=== PATIENT | female | born 1995 | race Caucasian/White ===

== ENCOUNTER 2025-07-31 03:59 | Emergency (ER) | payer BC ==
--- OUTSIDE RECORDS SUMMARY | 2025-07-31 04:03 | XMS REPORT | Continuity of Care Document ---
Author Name Unknown Address [address] [place] [address] Organization [facility] [place] Address [address] [place] [address] Care Team Providers Care Physician Support Coordinator Name Role Phone KEVIN ENRIQUEZ Primary Care Physician DEANNA Reina Attending Clinician Unavailable Payers Payer Name Policy Type Policy Number Effective Date Expirati on Date Source [employer] [id number] 00:00:00 Allergies, Adverse Reactions, Alerts Allergy Name Allergy Type Status Severity Reaction(s) Onset Date Inactive Date Treating Clinician Comments Source NO KNOWN ALLERGIE S Drug Class Active [facility] Social History Social Habit Start Date Stop Date Quantity Comments Source ASSERTION Not [facility] Sexual orientation U [facility] Sex assigned at 1995 00:00:00 1995 00:00:00 [facility] Smoking Status Start Date Stop Date Source Tobacco smoking consumption unknown [facility] Medications Ordered Medication Name Filled Medication Name Start Date Stop Date Current Medication? Ordering Clinician Indication Dosage Frequency Signature (SIG) Comments Components Source trazodone HCl (TRAZODONE ORAL) 06-30 09:38: 48 Yes 50mg Take 50 mg by mouth. [facility] escitalopra m oxalate (LEXAPRO) 20 mg tablet 06-30 09:38: 48 Yes 20mg Take 1 tablet by mouth in the morning. [facility] azelastine 137 mcg (0.1 %) nasal spray 06-30 00:00: 00 Yes [id number] 1{spray } Use 1 spray in each nostril in the morning and 1 spray in the evening. Use in each nostril as directed. [facility] fluticasone propionate 50 mcg/actuati on nasal spray 06-30 00:00: 00 Yes [id number] 1{spray } Use 1 spray in each nostril in the morning. [facility] Vital Signs Vital Name Observation Time Observation Value Comments S aubrey Systolic blood pressure 2025-06-30 14:38:00 113 mm[Hg] [facility] Diastolic blood pressure 2025-06-30 14:38:00 74 mm[Hg] [facility] Heart rate 2025-06-30 14:38:00 70 /min [facility] Body temperature 2025-06-30 14:38:00 36.44 Jeanne [facility] Respiratory rate 2025-06-30 14:38:00 15 /min [facility] Body height 2025-06-30 14:38:[address] [facility] Body weight 2025-06-30 14:38:[address] [facility] BMI 2025-06-30 14:38:00 28.64 kg/m2 [facility] Oxygen saturation in Arterial blood by Pulse oximetry 2025-06-30 14:38:00 99 /min [facility] Procedures Procedure Date / Time Performed Performing Clinicia n Source POCT MOLECULAR FLU 2025-06-30 14:58:00 Unknown, Attend ing [facility] POCT MOLECULAR COVID 2025-06-30 14:48:00 Unknown, Atte nding [facility] POCT MOLECULAR STREP 2025-06-30 14:45:00 Unknown, Atte [facility] Encounters Start Date/Time End Date/Time Encounter Type Admission Type Attending Clinicians Care Facility Care Department Encounter ID Source 2025-06-30 09:20:00 2025-06-30 10:10:28 Urgent Care R [facility] [id number] [facility] Results Test Description Test Time Test Comments Results Result Co mments Source [facility] [id number] 14:58:14* Test Item Value Reference Range Interpretation Comme nts SARS-CoV-2 Rapid ID NOW (test code = 31129-1) Not Detected Not Detected ANNIE (test code = ANNIE) ID NOW COVID-19 As say is an isothermal nucleic acid amplification test intended for the qualitative detection of nucleic acid from SARS-CoV-2 viral RNA in nasopharyngeal (LIBRARIAN HELPER) specimens. It is used under Emergency Use Authorization (EUA) by FDA. The limit of detection (LOD) of the assay is 125 Genome Equivalents/mL. Please note that a new specimen is requested for testing, if clinically indicated, on tests performed past validated specimen stability time. A positive result is indicative of the presence of SARS-CoV-2 RNA. ?Clinical correlation with patient history and other diagnostic information is necessary to determine patient infection status. A negative (Not Detected) result does not preclude SARS-CoV-2 infection. In patients with a high suspicion of SARS-CoV-2 infection, negative results should be treated as presumptive negative and a new specimen should be tested with alternative nucleic acid amplification molecular test. Indeterminate: Unable to generate a valid test result on this specimen. ?Please collect a new specimen for repeat testing if clinically indicated. Lab Interpretation (test code = 03290-9) Normal [facility] MOLECULAR [id number] 14:53:18* Test Item Value Reference Range Interpretation Comme nts POCT Molecular Strep (test c ode = 30130-9) Negative Negative Lab Interpretation (test cod e = 71909-9) Normal [facility]
--- NOTE | 2025-07-31 04:25 | EDPHYS ---
Physician Documentation [facility] Name: Hiwot Valenzuela Age: 30 yrs Sex: Female : 1995 Arrival Date: 07/31/2025 Time: 03:59 Bed 8 Private MD: ED Physician Drew Silverman HPI: 07/31 04:12 This 30 yrs old Female presents to ER via Unassigned with complaints of sp4 Toothache, Facial Swelling, Nausea, Near Syncope. 08/01 01:52 Patient presents with acute moderate to severe toothache left lower molars associated sp4 with mild facial swelling.. 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 - Infectious Disease History:: Denies. - Social history:: Smoking status: Reported history of juuling and/or vaping. - Family history:: not pertinent. ROS: 08/01 01:52 Constitutional: Negative for fever, chills, and weight loss, positive left lower sp4 dental pain swelling as well All other systems are negative, Exam: 01:52 Constitutional: This is a well developed, well nourished patient who is awake, alert, sp4 and in no acute distress. Head/Face: Normocephalic, atraumatic. Eyes: Pupils equal round and reactive to light, extra-ocular motions intact. Lids and lashes normal. Conjunctiva and sclera are not injected. Cornea within normal limits. Periorbital areas with no swelling, redness, or edema. ENT: Nares patent. No nasal discharge, no septal abnormalities noted. Tympanic membranes are normal and external auditory canals are clear. Oropharynx with no redness, swelling, or masses, exudates, or evidence of obstruction, uvula midline. Mucous membranes moist. Significant dental decay, tooth #17 decayed to the gumline. Otherwise moderate to severe periodontal disease, multiple areas of cavities Neck: Trachea midline, no thyromegaly or masses palpated, and no cervical lymphadenopathy. Supple, full range of motion without nuchal rigidity, or vertebral point tenderness. Chest/axilla: Normal chest wall appearance and motion. Nontender with no deformity. No lesions are appreciated. Cardiovascular: Regular rate and rhythm with a normal S1 and S2. No gallops, murmurs, or rubs. No pulse deficits. Respiratory: Lungs have equal breath sounds bilaterally, clear to auscultation and percussion. No rales, rhonchi or wheezes noted. No increased work of breathing, no retractions or nasal flaring. Abdomen/GI: Soft, with normal bowel sounds. No distension or tympany. No guarding or rebound. No evidence of tenderness throughout. Back: No spinal tenderness. No costovertebral tenderness. Skin: Warm, dry with normal turgor. Normal color with no rashes, no lesions, and no evidence of cellulitis. MS/ Extremity: Pulses equal, no cyanosis. Neurovascular intact. Full, normal range of motion. Neuro: Awake and alert, GCS 15, oriented to person, place, time, and situation. Cranial nerves II-XII grossly intact. Motor strength 5/5 in all extremities. Sensory grossly intact. Psych: Awake, alert, with orientation to person, place and time. Behavior, mood, and affect are within normal limits Vital Signs: 07/31 04:24 BP 128 / 83; Pulse 89; Resp 16; Temp 98.2; Pulse Ox 98% ; Weight 70.31 kg; Height 5 ft. vc1 3 in. ; Pain 07/05; 04:24 Body Mass Index 27.46 (70.31 kg, 160.02 cm) vc1 04:24 Pain Scale: Adult vc1 [place] Coma Score: 08/01 01:52 Eye Response: spontaneous(4). Motor Response: obeys commands(6). Verbal Response: sp4 oriented(5). Total: 15. MDM: 07/31 04:14 Medical Screening Exam initiated sp4 08/01 01:54 Differential diagnosis: dental caries, gingivitis, dental abscess, pericoronitis, sp4 aphthous ulcers, gingivostomatitis. Data reviewed: vital signs, nurses notes, old medical records. Consideration of Admission/Observation Escalation of care including admission/observation considered. ED course: Patient states she has intrauterine device. Denies possibility of being . Will provide cephalexin for the next 10 days. Will recommend follow-up with oral surgeon. Administered Medications: 07/31 04:44 Drug: traMADol PO 100 mg PO once Route: PO; ha1 05:02 Follow up: Response: No adverse reaction; Marked relief of symptoms; Pain is decreased ha1 04:44 Drug: Ondansetron PO 8 mg PO once Route: PO; ha1 05:02 Follow up: Response: No adverse reaction; Marked relief of symptoms ha1 04:44 Drug: Fluconazole PO 200 mg PO once Route: PO; ha1 05:01 Follow up: Response: No adverse reaction; Marked relief of symptoms ha1 04:45 Drug: Rocephin (cefTRIAXone) IM 1 grams IM once Route: IM; Site: left ventrogluteal; ha1 05:02 Follow up: Response: No adverse reaction ha1 04:45 Drug: Ketorolac IM 60 mg IM once Route: IM; Site: left ventrogluteal; ha1 05:02 Follow up: Response: No adverse reaction; Marked relief of symptoms; Pain is decreased ha1 Disposition: 08/01 01:54 Chart complete. sp4 Disposition Summary: 07/31/25 04:24 Discharge Ordered Notes: Location: Home sp4 Problem: new sp4 Symptoms: have improved sp4 Condition: Stable sp4 Diagnosis - Dental infection tooth number 17, acute on chronic dental pain, moderate to severe sp4 dental decay, moderate chronic periodontal disease Followup: sp4 - With: Obed Ram DDS - When: 7 - 10 days - Reason: Recheck today's complaints Discharge Instructions: - Discharge Summary Sheet sp4 - Dental Caries, Adult, [id number] sp4 Forms: - Patient Portal Instructions sp4 Prescriptions: - meloxicam 15 mg Oral tablet - take 1 tablet ORAL route daily PRN pain; 30 tablet; Refills: 0, Product sp4 Selection Permitted - Cephalexin 500 mg Oral Capsule - take 1 capsule ORAL route every 6 hours for 10 days; 40 capsule; Refills: 0, sp4 Product Selection Permitted - Fluconazole 200 mg Oral tablet - take 1 tablet ORAL route once daily for 10 days; 10 tablet; Refills: 0, Product sp4 Selection Permitted - Tramadol 50 mg Oral Tablet - take 1 tablet ORAL route every 8 hours as needed; 12 tablet; Refills: 0, sp4 Product Selection Permitted - ondansetron 8 mg Oral Tablet,disintegrating - take 1 tablet ORAL route every 8 hours PRN nausea; 30 tablet; Refills: 0, sp4 Product Selection Permitted Signatures: Tahira Jimenez RN RN vc1 Eden Keen RN RN ha1 Drew Silverman MD MD sp4 Corrections: (The following items were deleted from the chart) 07/31 04:30 04:27 PSHx: None; vc1 vc1
[2025-07-31] MEDS ORDERED: KETOROLAC 30 MG/ML INJ ONE (04:34)
[2025-07-31] MEDS ORDERED: FLUCONAZOLE 100 MG TAB ONE (04:34)
[2025-07-31] MEDS ORDERED: CEFTRIAXONE 1000 MG/VIAL ONE (04:34)
[2025-07-31] MEDS ORDERED: ONDANSETRON 4 MG (ODT) TAB ONE (04:35)
[2025-07-31] MEDS ORDERED: WATER FOR INJ,STERILE 10 ML ONE (04:35)
[2025-07-31] MEDS ORDERED: TRAMADOL HCL 50 MG TAB ONE (04:35)
--- NOTE | 2025-07-31 05:06 | ER ---
Nurse's Notes [facility] Name: Hiwot Valenzuela Age: 30 yrs Sex: Female : 1995 Arrival Date: 07/31/2025 Time: 03:59 Bed 8 Private MD: Diagnosis: Dental infection tooth number 17, acute on chronic dental pain, moderate to severe dental decay, moderate chronic periodontal disease Presentation: 07/31 04:24 Chief complaint: Patient states: pain to left bottom tooth with swelling to face and vc1 neck. Makes it feel like I am having trouble breathing. Coronavirus screen: Client denies travel out of the [place] in the last 14 days. At this time, the client does not indicate any symptoms associated with coronavirus-19. Ebola Screen: Patient negative for fever greater than or equal to 101.5 degrees Fahrenheit, and additional compatible Ebola Virus Disease symptoms Patient denies exposure to infectious person. Patient denies travel to an Ebola-affected area in the 21 days before illness onset. No symptoms or risks identified at this time. Initial Sepsis Screen: Does the patient meet any 2 criteria? No. Patient's initial sepsis screen is negative. Does the patient have a suspected source of infection? No. Patient's initial sepsis screen is negative. Risk Assessment: Do you want to hurt yourself or someone else? Patient reports no desire to harm self or others. Onset of symptoms was July 31, 2025. 04:24 Method Of Arrival: Ambulatory vc1 04:24 Acuity: DEANNA 4 vc1 Triage Assessment: 04:31 General: Appears in no apparent distress. uncomfortable, Behavior is calm, cooperative, vc1 appropriate for age. Pain: Complains of pain in lower left third molar Pain does not radiate. Pain currently is 9 out of 10 on a pain scale. EENT: Reports pain in lower left third molar. Neuro: Level of Consciousness is awake, alert, obeys commands, Oriented to person, place, time, situation, Appropriate for age. Cardiovascular: Heart tones S1 S2 present Capillary refill < 3 seconds Patient's skin is warm and dry. Respiratory: Airway is patent Respiratory effort is even, unlabored, Respiratory pattern is regular, symmetrical, Breath sounds are clear bilaterally. GI: No deficits noted. No signs and/or symptoms were reported involving the gastrointestinal system. : No deficits noted. No signs and/or symptoms were reported regarding the genitourinary system. Derm: Skin is intact, is healthy with good turgor, Skin is dry, Skin is normal, Skin temperature is warm. Musculoskeletal: Circulation, motion, and sensation intact. Range of motion: intact in all extremities. 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 - Infectious Disease History:: Denies. - Social history:: Smoking status: Reported history of juuling and/or vaping. - Family history:: not pertinent. Screenin:30 Abuse screen: Denies threats or abuse. Nutritional screening: No deficits noted. vc1 Tuberculosis screening: No symptoms or risk factors identified. 04:32 [facility] ED Fall Risk Assessment (Adult) History of falling in the last 3 months, vc1 including since admission No falls in past 3 months (0 pts) Confusion or Disorientation No (0 pts) Intoxicated or Sedated No (0 pts) Impaired Gait No (0 pts) Mobility Assist Device Used No (0 pt) Altered Elimination No (0 pt) Score/Fall Risk Level 0 - 2 = Low Risk Oriented to surroundings, Maintained a safe environment, Educated pt \T\ family on fall prevention, incl call for assistance when getting out of bed, Assessed \T\ reinforced patient's understanding of fall precautions, Hourly rounding (assess needs \T\ fall precautionary measures) done. Assessment: 04:33 General: See triage assessment. vc1 05:02 Reassessment: Patient and/or family updated on plan of care and expected duration. Pain ha1 level reassessed. Patient is alert, oriented x 3, equal unlabored respirations, skin warm/dry/pink. PAIN 3/10 Patient states feeling better. Patient states symptoms have improved. Vital Signs: 04:24 BP 128 / 83; Pulse 89; Resp 16; Temp 98.2; Pulse Ox 98% ; Weight 70.31 kg; Height 5 ft. vc1 3 in. ; Pain 9/10; 04:24 Body Mass Index 27.46 (70.31 kg, 160.02 cm) vc1 04:24 Pain Scale: Adult vc1 [place] Coma Score: 08/01 01:52 Eye Response: spontaneous(4). Motor Response: obeys commands(6). Verbal Response: sp4 oriented(5). Total: 15. ED Course: 07/31 04:03 Patient arrived in ED. gm2 04:12 Drew Silverman MD is Attending Physician. sp4 04:14 Tamara Burnett, EMMETT is Primary Nurse. kd3 04:23 Obed Ram DDS is Referral Physician. sp4 04:26 Triage completed. vc1 04:30 Arm band placed on left wrist. vc1 04:32 Patient has correct armband on for positive identification. Bed in low position. Call vc1 light in reach. Provided Education on: Plan of care. Pulse ox on. NIBP on. 05:03 No provider procedures requiring assistance completed. Patient did not have IV access ha1 during this emergency room visit. Administered Medications: 04:44 Drug: traMADol PO 100 mg PO once Route: PO; ha1 05:02 Follow up: Response: No adverse reaction; Marked relief of symptoms; Pain is decreased ha1 04:44 Drug: Ondansetron PO 8 mg PO once Route: PO; ha1 05:02 Follow up: Response: No adverse reaction; Marked relief of symptoms ha1 04:44 Drug: Fluconazole PO 200 mg PO once Route: PO; ha1 05:01 Follow up: Response: No adverse reaction; Marked relief of symptoms ha1 04:45 Drug: Rocephin (cefTRIAXone) IM 1 grams IM once Route: IM; Site: left ventrogluteal; ha1 05:02 Follow up: Response: No adverse reaction ha1 04:45 Drug: Ketorolac IM 60 mg IM once Route: IM; Site: left ventrogluteal; ha1 05:02 Follow up: Response: No adverse reaction; Marked relief of symptoms; Pain is decreased ha1 Medication: 04:30 VIS not applicable for this client. vc1 Outcome: 04:24 Discharge ordered by . micaela 05:04 Discharged to home ambulatory, with family, ha1 05:04 Condition: stable 05:04 Discharge instructions given to patient, Instructed on discharge instructions, follow up and referral plans. medication usage, Demonstrated understanding of instructions, follow-up care, medications, Prescriptions given X 5 05:05 Patient left the ED. ha1 Signatures: Tamara Burnett RN RN kd3 Tahira Jimenez RN RN vc1 Eden Keen RN RN ha1 Drew Silverman MD MD sp4 Meli Putnam 2 Corrections: (The following items were deleted from the chart) 04:30 04:27 PSHx: None; vc1 vc1
[2025-07-31 05:15] VITALS: BP 128/83; TEMP 98.2; O2SAT 98
== END 2025-07-31 05:05 | disposition home or self-care (01) ==
LOC: ER 03:59
DX: K02.9 Dental caries, unspecified (principal); K05.6 Periodontal disease, unspecified; R55 Syncope and collapse; R11.0 Nausea; F41.9 Anxiety disorder, unspecified
CPT/HCPCS: 96372; 99284; J1885; Q0162; J0696

== ENCOUNTER 2025-08-06 21:15 | Emergency (ER) | payer BC ==
[2025-08-06] MEDS ORDERED: NA CHLORIDE 0.9% 1,000 ML ONE ×2 (21:45→22:06)
[2025-08-06 21:46] LABS: Absolute Lymphocytes (CBC) 2.7 K/uL (0.7-4.9); Hematocrit 38.0 % (36.0-45.0); Hemoglobin 12.9 g/dL (12.0-15.0); MCH 30.7 pg (27.0-35.0); MCHC 34.0 g/dL (32.0-36.0); MCV 90.5 fL (80-100); MPV 7.2 fL (7.6-11.3); Nucleated RBC Absolute Count 0.0 (0-0); Nucleated Red Blood Cells % 0.0 % (0-0); RBC Red Blood Cell Count 4.20 M/uL (3.86-4.86); White Blood Count 7.70 thou/uL (4.3-10.9)
[2025-08-06 21:52] LABS: Sqamous Epithelial <5 /HPF (None Seen); Urine Crystals Unidentified Few /HPF (None Seen); Urine Culture Reflex Order NOT NEEDED; Urine Microscopic Reflex YN ORDER UMIC
[2025-08-06 21:56] LABS: PT Prothrombin Time 11.8 SECONDS (10-13.0); PTT, Activated Partial Thromb 29.3 SECONDS (27.2-37.4); Protime INR 1.05
[2025-08-06] MEDS ORDERED: LORazepam 2 MG/ML VIAL ONE (22:04)
[2025-08-06] MEDS ORDERED: THIAMINE 200 MG/2 ML INJ ONE (22:05)
[2025-08-06] MEDS ORDERED: FOLIC ACID 5 MG/ML VIAL ONE (22:05)
[2025-08-06] MEDS ORDERED: MULTIVITAMINS 10 ML VIAL (INJ) IV ONE (22:05)
[2025-08-06 22:07] LABS: ALT/SGPT 29 U/L (13-56); AST/SGOT 31 U/L (15-37); Albumin 3.0 g/dL (3.4-5.0); Albumin/Globulin Ratio 0.7 (1.1-1.8); Alkaline Phosphatase 99 U/L (45-117); Anion Gap 9.7 mEq/L (5.0-15.0); BUN Blood Urea Nitrogen 9 mg/dL (7-18); Globulin 4.3 g/dL (2.3-3.5); Glucose Level 83 mg/dL (74-106); Potassium 3.7 mEq/L (3.5-5.1)
[2025-08-06 22:08] LABS: Bilirubin Indirect, Calculated 0.0 mg/dL (0.2-0.8)
[2025-08-06 22:30] LABS: METHAMPHETAM NEGATIVE (NEGATIVE); THC Cannibis POSITIVE (NEGATIVE)
--- NOTE | 2025-08-06 22:32 | ER ---
Nurse's Notes [facility] Name: Hiwot Emanuel Age: 30 yrs Sex: Female : 1995 Arrival Date: 08/06/2025 Time: 21:15 Bed 19 Private MD: Diagnosis: Alcohol use, unspecified;Alcohol use, unspecified with alcohol-induced anxiety disorder;Other depressive episodes;Alcohol abuse with intoxication Presentation: 08/06 21:30 Chief complaint: Patient states: PT STATES SHE WAS AT A FESTIVAL AND HAD ONE BEER AND A br2 CIDER DRINK AND BEGAN FEELING LIKE SHE WAS "DRUNK". FEELS ALTERED, FACE FEELS HOT AND UNABLE TO TAKE A DEEP BREATH. Coronavirus screen: Client denies travel out of the [place] in the last 14 days. Ebola Screen: Patient denies exposure to infectious person. Initial Sepsis Screen: Does the patient meet any 2 criteria? No. Patient's initial sepsis screen is negative. Does the patient have a suspected source of infection? No. Patient's initial sepsis screen is negative. Risk Assessment: Do you want to hurt yourself or someone else? Patient reports no desire to harm self or others. Onset of symptoms is unknown. 21:30 Method Of Arrival: Ambulatory br2 21:30 Acuity: DEANNA 3 br2 Triage Assessment: 21:32 General: Appears in no apparent distress. comfortable, Behavior is calm, cooperative. br2 Pain: Denies pain. PHYSICAL THERAPY AIDE: 08/07 00:06 Not cp4 Historical: - PMHx: 08/06 21:32 Anxiety; Anxiety; br2 - PSHx: 21:32 section; gastric sleeve; br2 - Immunization history:: Adult Immunizations up to date. - Infectious Disease History:: Denies. - Social history:: Smoking status: Reported history of juuling and/or vaping. Patient uses alcohol, street drugs, marijuana. Screenin:41 [facility] ED Fall Risk Assessment (Adult) History of falling in the last 3 months, cp4 including since admission No falls in past 3 months (0 pts) Confusion or Disorientation No (0 pts) Intoxicated or Sedated No (0 pts) Impaired Gait No (0 pts) Mobility Assist Device Used No (0 pt) Altered Elimination No (0 pt) Score/Fall Risk Level 0 - 2 = Low Risk Oriented to surroundings, Maintained a safe environment, Assessed \\T\\ reinforced patient's understanding of fall precautions, Hourly rounding (assess needs \\T\\ fall precautionary measures) done. Abuse screen: Denies threats or abuse. Denies injuries from another. Nutritional screening: No deficits noted. Tuberculosis screening: No symptoms or risk factors identified. Never had TB. Assessment: 21:41 General: Appears in no apparent distress. comfortable, Behavior is calm, cooperative, cp4 appropriate for age. Pain: Denies pain. Neuro: Level of Consciousness is awake, alert, obeys commands, Oriented to person, place, time, situation. Cardiovascular: Patient's skin is warm and dry. Respiratory: Airway is patent Respiratory effort is even, unlabored. GI: No signs and/or symptoms were reported involving the gastrointestinal system. : No signs and/or symptoms were reported regarding the genitourinary system. EENT: No signs and/or symptoms were reported regarding the EENT system. Derm: No signs and/or symptoms reported regarding the dermatologic system. Musculoskeletal: No signs and/or symptoms reported regarding the musculoskeletal system. 23:03 Reassessment: Dispo pending IV fluids. cp4 Psych: 21:40 [place] Suicide Severity Screening: In the past month, have you wished you were cp4 or wished you could go to sleep and not wake up? Patient responds "No." "In the past month, have you actually had any thoughts of killing yourself?" Patient responds "no." "In your lifetime, have you ever done anything, started to do anything, or prepared to do anything to end your life?" Patient responds "no.". Subjective: Patient's mood is anxious Delusions are denied, Hallucinations are denied Having thoughts of. Objective: Patient is cooperative, Speech is normal, Affect is appropriate. Interventions: Urine collected and sent for urine drug test. Safety Checks: Visitors are present. Patient uses Patient uses marijuana Last use was 1 weeks ago. Vital Signs: 21:30 BP 129 / 84; Pulse 111; Resp 18; Temp 98.5; Pulse Ox 100% ; Height 5 ft. 3 in. ; Pain br2 0/10; 22:49 BP 109 / 76; Pulse 93; Resp 21; Pulse Ox 100% ; cp4 08/07 00:05 BP 107 / 65; Pulse 88; Resp 20; Pulse Ox 99% ; cp4 08/06 21:30 Pain Scale: Adult br2 ED Course: 08/06 21:17 Patient arrived in ED. mr 21:17 Tyler Marroquin MD is Attending Physician. [facility] 21:32 Triage completed. br2 21:32 Arm band placed on right wrist. br2 21:40 Nuha Armando is Primary Nurse. cp4 21:41 Bed in low position. Call light in reach. Side rails up X 1. cp4 21:41 No provider procedures requiring assistance completed. Initial lab(s) drawn, by ED cp4 staff, sent to lab. Urine collected: clean catch specimen, clear, EKG done, by ED staff, reviewed by Tyler Marroquin MD. Inserted saline lock: 20 gauge in right antecubital area, using aseptic technique. Blood collected. Flushed with 10 mL NS. 22:31 Trino Salazar MD is Referral Physician. [facility] 08/07 00:05 Provided Education on: alcohol use. cp4 00:05 intact, bleeding controlled, No redness/swelling at site. Pressure dressing applied. cp4 Administered Medications: 08/06 21:47 Drug: NS 0.9% IV 1000 ml IV at 1000 ml once; to be given as a bolus over 60 minutes cp4 Route: IV; Rate: 1000 ml; Site: right antecubital; 22:52 Follow up: IV Status: Completed infusion cp4 22:09 Drug: Thiamine IV 100 mg IV at bolus once Route: IV; Rate: bolus; Site: right cp4 antecubital; 22:51 Follow up: IV Status: Completed infusion cp4 22:09 Drug: Banana Bag - (Multivitamin IV 1 amp, NS 0.9% IV 1000 ml, Thiamine IV 100 mg, cp4 foLIC Acid IVPB 1 mg) IV at 500 ml/hr once Route: IV; Rate: 500 ml/hr; Site: right antecubital; 08/07 00:07 Follow up: IV Status: Completed infusion cp4 08/06 22:09 Drug: Ativan IVP 1 mg IVP once Route: IVP; Site: right antecubital; cp4 22:51 Follow up: Response: No adverse reaction; Anxiety decreased cp4 Medication: 21:41 VIS not applicable for this client. cp4 Outcome: 22:31 Discharge ordered by MD. martins 08/07 00:05 Discharged to home ambulatory, cp4 Condition: stable Discharge instructions given to patient, family, Instructed on discharge instructions, follow up and referral plans. Demonstrated understanding of instructions, follow-up care, 00:06 Patient left the ED. cp4 Signatures: Tyler Marroquin MD MD cha Rivera, Anna, Reg Ortiz Prabhu Sosaina cp4 Lizett Torres, RN RN br2
--- NOTE | 2025-08-06 22:32 | EDPHYS ---
Physician Documentation [facility] Name: Hiwot Emanuel Age: 30 yrs Sex: Female : 1995 Arrival Date: 08/06/2025 Time: 21:15 Bed 19 Private MD: ED Physician Tyler Marroquin HPI: 08/06 21:49 This 30 yrs old Female presents to ER via Ambulatory with complaints of eliezer Possible drugged, Anxiety. 21:49 The patient presents with trouble concentrating. Onset: The symptoms/episode eliezer began/occurred 1 day(s) ago. Possible causes: drug use, alcohol, low blood sugar, seizure, sepsis. Associated signs and symptoms: Pertinent positives: dizziness. Current symptoms: In the emergency department the patient's symptoms have improved, moderately. Patient's baseline: Neuro: alert and fully oriented. The patient has not experienced similar symptoms in the past. 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 - Infectious Disease History:: Denies. - Social history:: Smoking status: Reported history of juuling and/or vaping. Patient uses alcohol, street drugs, marijuana. ROS: 21:53 Constitutional: Negative for fever, chills, and weight loss, Eyes: Negative for injury, eliezer pain, redness, and discharge, ENT: Negative for injury, pain, and discharge, Neck: Negative for injury, pain, and swelling, Cardiovascular: Negative for chest pain, palpitations, and edema, Respiratory: Negative for shortness of breath, cough, wheezing, and pleuritic chest pain, Abdomen/GI: Negative for abdominal pain, nausea, vomiting, diarrhea, and constipation, Back: Negative for injury and pain, : Negative for injury, bleeding, discharge, and swelling, MS/Extremity: Negative for injury and deformity, Skin: Negative for injury, rash, and discoloration, Psych: Negative for depression, anxiety, suicide ideation, homicidal ideation, and hallucinations, Allergy/Immunology: Negative for hives, rash, and allergies, Endocrine: Negative for neck swelling, polydipsia, polyuria, polyphagia, and marked weight changes, Hematologic/Lymphatic: Negative for swollen nodes, abnormal bleeding, and unusual bruising, 21:53 Neuro: Positive for dizziness, weakness, non focal, normo cephalic , atraumatic, Exam: 21:53 Constitutional: This is a well developed, well nourished patient who is awake, alert, eliezer and in no acute distress. Head/Face: Normocephalic, atraumatic. Eyes: Pupils equal round and reactive to light, extra-ocular motions intact. Lids and lashes normal. Conjunctiva and sclera are non-icteric and not injected. Cornea within normal limits. Periorbital areas with no swelling, redness, or edema. ENT: Nares patent. No nasal discharge, no septal abnormalities noted. Tympanic membranes are normal and external auditory canals are clear. Oropharynx with no redness, swelling, or masses, exudates, or evidence of obstruction, uvula midline. Mucous membranes moist. Neck: Trachea midline, no thyromegaly or masses palpated, and no cervical lymphadenopathy. Supple, full range of motion without nuchal rigidity, or vertebral point tenderness. No Meningismus. Chest/axilla: Normal chest wall appearance and motion. Nontender with no deformity. No lesions are appreciated. Respiratory: Lungs have equal breath sounds bilaterally, clear to auscultation and percussion. No rales, rhonchi or wheezes noted. No increased work of breathing, no retractions or nasal flaring. Abdomen/GI: Soft, non-tender, with normal bowel sounds. No distension or tympany. No guarding or rebound. No evidence of tenderness throughout. Back: No spinal tenderness. No costovertebral tenderness. Full range of motion. Skin: Warm, dry with normal turgor. Normal color with no rashes, no lesions, and no evidence of cellulitis. MS/ Extremity: Pulses equal, no cyanosis. Neurovascular intact. Full, normal range of motion., bilateral aka Neuro: Awake and alert, GCS 15, oriented to person, place, time, and situation. Cranial nerves II-XII grossly intact. Motor strength 5/5 in all extremities. Sensory grossly intact. Cerebellar exam normal. Normal gait. Psych: Awake, alert, with orientation to person, place and time. Behavior, mood, and affect are within normal limits. 21:53 Cardiovascular: Rate: tachycardic, actual rate is 111 bpm, Rhythm: regular, Pulses: no pulse deficits are appreciated, Heart sounds: normal, Edema: is not appreciated, JVD: is not appreciated, 21:53 ECG was reviewed by the Attending Physician. Vital Signs: 21:30 BP 129 / 84; Pulse 111; Resp 18; Temp 98.5; Pulse Ox 100% ; Height 5 ft. 3 in. ; Pain br2 0/10; 22:49 BP 109 / 76; Pulse 93; Resp 21; Pulse Ox 100% ; cp4 08/07 00:05 BP 107 / 65; Pulse 88; Resp 20; Pulse Ox 99% ; cp4 08/06 21:30 Pain Scale: Adult br2 MDM: 08/06 21:17 Medical Screening Exam initiated eliezer 21:59 Differential Diagnosis altered mental status, sepsis, flu. Differential Diagnosis: CVA, eliezer electrolyte abnormality, alcohol intoxication, hypoglycemia, overdose, TIA, UTI, volume depletion. Data reviewed: vital signs, nurses notes, lab test result(s), EKG. Consideration of Admission/Observation Escalation of care including admission/observation considered. I considered the following discharge prescriptions or medication management in the emergency department Medications were administered in the Emergency Department. See MAR. Independent interpretation of the following test(s) in the Emergency Department EKG: See my EKG interpretation above. Test considered but Not performed: EKG: no ct head. Historians other than the Patient: Spouse/Significant Other: sig other well informed. Care significantly affected by the following chronic conditions: anxiety , depression. Counseling: I had a detailed discussion with the patient and/or guardian regarding the historical points, exam findings, and any diagnostic results supporting the discharge/admit diagnosis, lab results, the need for outpatient follow up, for definitive care, a family practitioner, a psychiatrist. 08/06 21:19 Order name: Acetaminophen; Complete Time: 22:31 eliezer 08/06 21:19 Order name: Basic Metabolic Panel; Complete Time: 22:31 eliezer 08/06 21:19 Order name: CBC with Diff; Complete Time: 21:57 eliezer 08/06 21:19 Order name: ETOH Level; Complete Time: 22:31 eliezer 08/06 21:19 Order name: Hepatic Function; Complete Time: 22:31 eliezer 08/06 21:19 Order name: PT-INR; Complete Time: 21:57 eliezer 08/06 21:19 Order name: Test, Urine; Complete Time: 21:57 [facility] 08/06 21:19 Order name: Ptt, Activated; Complete Time: 21:57 [facility] 08/06 21: Order name: Salicylate; Complete Time: 22:31 [facility] 08/06 21:19 Order name: Urine Drug Screen; Complete Time: 22:31 [facility] 08/06 21:19 Order name: UA Rfx Cody Cult if indicated; Complete Time: 21:57 [facility] 08/06 21: Order name: EKG; Complete Time: 21:19 [facility] 08/06 21: Order name: EKG - Nurse/Tech; Complete Time: 21:40 [facility] 08/06 21:19 Order name: IV Saline Lock; Complete Time: 21:40 [facility] 08/06 21: Order name: Labs collected and sent; Complete Time: 21:40 [facility] 08/06 21:19 Order name: Suicide Screening ([place]); Complete Time: 21:40 [facility] EC:53 Rate is 104 beats/min. Rhythm is regular. QRS [place] is Normal. [place] interval is normal. eliezer QRS interval is normal. QT interval is normal. No Q waves. T waves are Normal. No ST changes noted. Clinical impression: Sinus tachycardia and No evidence of ischemia. Interpreted by me. Reviewed by me. Administered Medications: 21:47 Drug: NS 0.9% IV 1000 ml IV at 1000 ml once; to be given as a bolus over 60 minutes cp4 Route: IV; Rate: 1000 ml; Site: right antecubital; 22:52 Follow up: IV Status: Completed infusion cp4 22:09 Drug: Thiamine IV 100 mg IV at bolus once Route: IV; Rate: bolus; Site: right [facility] antecubital; 22:51 Follow up: IV Status: Completed infusion cp4 22:09 Drug: Banana Bag - (Multivitamin IV 1 amp, NS 0.9% IV 1000 ml, Thiamine IV 100 mg, cp4 foLIC Acid IVPB 1 mg) IV at 500 ml/hr once Route: IV; Rate: 500 ml/hr; Site: right antecubital; 08/07 00:07 Follow up: IV Status: Completed infusion cp4 08/06 22:09 Drug: Ativan IVP 1 mg IVP once Route: IVP; Site: right antecubital; cp4 22:51 Follow up: Response: No adverse reaction; Anxiety decreased cp4 Disposition Summary: 08/06/25 22:31 Discharge Ordered Notes: Location: Home eliezer Problem: new eliezer Symptoms: have improved eliezer Condition: Stable eliezer Diagnosis - Alcohol use, unspecified eliezer - Alcohol use, unspecified with alcohol-induced anxiety disorder eliezer - Other depressive episodes eliezer - Alcohol abuse with intoxication eliezer Followup: eliezer - With: Private Physician - When: 2 - 3 days - Reason: Recheck today's complaints, Continuance of care, Re-evaluation by your physician Followup: eliezer - With: Trino Salazar MD - When: 2 - 3 days - Reason: Recheck today's complaints, Re-evaluation by your physician Discharge Instructions: - Discharge Summary Sheet eliezer - Alcohol Use Disorder eliezer - Alcohol Abuse and Nutrition eliezer - Supporting Someone With Anxiety eliezer - Managing Anxiety, Adult eliezer Forms: - Medication Reconciliation Form eliezer - Antibiotic Education eliezer - Prescription Opioid Use eliezer - Patient Portal Instructions eliezer - Leadership Thank You Letter eliezer Signatures: Dispatcher [employer] EDMS Tyler Marroquin MD MD cha Potter, Christina cp4 Lizett Torres RN RN br2 Corrections: (The following items were deleted from the chart) 21:19 21:19 ACETAMINOPHEN+C.LAB.BRZ ordered. EDMS EDMS 21:19 21:19 BASIC METABOLIC PANEL+C.LAB.BRZ ordered. EDMS EDMS 21:19 21:19 CBC+H.LAB.BRZ ordered. EDMS EDMS 21:19 21:19 ETHANOL+C.LAB.BRZ ordered. EDMS EDMS 21:19 21:19 HEPATIC FUNCTION+C.LAB.BRZ ordered. EDMS EDMS 21:19 21:19 PROTIME (+INR)+COAG.LAB.BRZ ordered. EDMS EDMS 21:19 21:19 Test, Urine+UC.LAB.BRZ ordered. EDMS EDMS 21:19 21:19 PTT, ACTIVATED+COAG.LAB.BRZ ordered. EDMS EDMS 21:20 21:19 SALICYLATE+C.LAB.BRZ ordered. EDMS EDMS 21:20 21:19 URINE DRUG SCREEN+UC.LAB.BRZ ordered. EDMS EDMS 21:20 21:19 UA Rfx Cody Cult if indicated+U.LAB.BRZ ordered. EDMS EDMS
[2025-08-07 04:22] VITALS: TEMP 98.5
[2025-08-07 04:32] VITALS: BP 107/65; O2SAT 99
== END 2025-08-07 00:06 | disposition home or self-care (01) ==
LOC: ER 21:15
DX: F10.180 Alcohol abuse with alcohol-induced anxiety disorder (principal); F32.89 Other specified depressive episodes; F10.129 Alcohol abuse with intoxication, unspecified; Y90.6 Blood alcohol level of 120-199 mg/100 ml; F17.290 Nicotine dependence, other tobacco product, uncomplicated
CPT/HCPCS: 96365; 96368; 93005; 85025; 81001; 80048; 36415; 81025; 85610; 80076; 85730; 80307; 96375; 99284; 96366; 80143; 80179; 82077; J3411; J7030 ×2